=== PATIENT | female | born 2000 | race African-American/Black ===

== ENCOUNTER 2022-02-12 12:14 | Emergency (ER) | payer OTHER ==
[2022-02-12 12:45] VITALS: BP 102/67; PULSE 74; RESP 18; TEMP 98.1; BMI 25.7
[2022-02-12] MEDS ORDERED: ACETAMINOPHEN 500 MG TABLET (FP) PO ONE (12:59)
[2022-02-12 13:43] LABS: BASO % 0.5 % (0-2.0); EOS % 3.1 % (0-4.5); HEMATOCRIT 39.8 % (32.4-45.2); HEMOGLOBIN 13.3 GM/dL (10.7-15.3); LYMPH % 31.9 % (8-40); MCH 30.6 pg (25.7-33.7); MCHC 33.3 g/dl (32.0-36.0); MEAN CELL VOLUME 91.8 fl (80-96); MONO % 5.4 % (3.8-10.2); NEUT % 59.1 % (42.8-82.8); PLATELET COUNT 243 10^3/uL (134-434); RBC 4.33 M/mm3 (3.60-5.2); WHITE BLOOD COUNT 8.5 K/mm3 (4.0-10.0)
[2022-02-12] MEDS ORDERED: ACETAMINOPHEN 500 MG TABLET (FP) ONE (13:51)
[2022-02-12 13:52] LABS: EPI CELLS 3 /uL (0-25.1); HYALINE CASTS 0 /uL (0-3.1); URINE APPEARANCE CLEAR; URINE BACTERIA 152 /uL (0-1359); URINE BILIRUBIN NEGATIVE (NEGATIVE); URINE COLOR YELLOW; URINE GLUCOSE (UA) NEGATIVE (NEGATIVE); URINE KETONE NEGATIVE (NEGATIVE); URINE LEUK ESTERASE NEGATIVE (NEGATIVE); URINE NITRITE NEGATIVE (NEGATIVE); URINE PROTEIN NEGATIVE (NEGATIVE); URINE RBC 50 /uL (0-23.9); URINE WBC 3 /uL (0-25.8)
[2022-02-12 14:02] LABS: CALCIUM 9.6 mg/dL (8.5-10.1)
[2022-02-12 14:03] LABS: BLOOD UREA NITROGEN 8.2 mg/dL (7-18)
[2022-02-12 14:06] LABS: CREATININE 0.7 mg/dL (0.55-1.3)
== END 2022-02-12 14:50 | disposition home or self-care (01) ==
LOC: JER 12:14
DX: O26.851 Spotting complicating pregnancy, first trimester (principal); Z3A.01 Less than 8 weeks gestation of pregnancy
CPT/HCPCS: 36415; 76817-TC; 80048; 81003; 84702; 85025; 86850; 86900; 86901; 87070; 87077; 87086; 87205; 99284-25

== ENCOUNTER 2022-02-13 19:33 | Emergency (ER) | payer OTHER ==
[2022-02-13 19:40] VITALS: BP 106/66; PULSE 79; RESP 19; TEMP 98.4; BMI 25.7
[2022-02-13] MEDS ORDERED: ACETAMINOPHEN 500 MG TABLET (FP) PO ONE (21:34)
[2022-02-13] MEDS ORDERED: ACETAMINOPHEN 325 MG TABLET (FP) ONE (21:36)
== END 2022-02-13 22:55 | disposition home or self-care (01) ==
LOC: JER 19:33
DX: O02.1 Missed abortion (principal); Z3A.01 Less than 8 weeks gestation of pregnancy
CPT/HCPCS: 36415; 76817-TC; 84702; 99284-25